=== PATIENT | male | born 1975 | race Caucasian/White ===

== ENCOUNTER 2019-12-13 09:49 | Emergency (ER) | payer OTHER, SELFPAY ==
[2019-12-13 09:50] VITALS: BP 137/96; PULSE 83; RESP 18; TEMP 36.6; O2SAT 100; BMI 23.7
--- NOTE | 2019-12-13 10:01 | RAD_ITS ---
STUDY: X-RAY - LEFT SHOULDER REASON FOR EXAM: Male, 44 years old. INCREASING LEFT SHOULDER PAIN, NKI -- PAIN IN JOINT TECHNIQUE: 4 view(s) of the shoulder. COMPARISON: None. FINDINGS: Normal glenohumeral articulation. Normal acromioclavicular joint. Normal acromion. Normal humeral head and visualized proximal humerus. The soft tissue structures are unremarkable. Normal visualized pulmonary apex. RAD/Shoulder min 2 Views IMPRESSION: Normal x-ray examination of the shoulder. Electronically Signed: Kevin Otto DO at 10:50 EST Tel , Service support ,
--- NOTE | 2019-12-13 10:08 | ED.VIS.UPPEX ---
History of Present Illness Informant: Patient, Family Occurred: - - 2 years Mechanism/Context: - - repetitive motion from work activity Onset: - - 2 years Context: Gradual Onset Timing: Continuous Quality of Pain: Aching Location: left shoulder Current Severity: Moderate Maximum Severity: Moderate Worsened by: movement Relieved by: rest Associated Symptoms: Negative for: Parasthesia, Weakness, Loss of Funtion Narrative: 44-year-old [id number]-ndalzkua male presents with left shoulder pain. 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 He also recently got health insurance. He is now here for evaluation. He denies any specific inciting injury or trauma but he does a lot of overhead work which irritates his shoulder. He has been using ibuprofen which does help some with the pain. He has not had any swelling, neck pain, numbness tingling or weakness. He has not had chest pain or shortness of breath. He has not been lightheaded or dizzy. He has no back pain. No history of injuries or surgeries to this extremity previously. Tetanus Immunization: Unknown Prior similar symptoms: Yes Recent Illness/Hospitalization: No <Roberth Ordonez - Last Filed: 12/13/19 10:54> <Omi Vela - Last Filed: 12/13/19 12:04> Chief Complaint: Upper Extremity Injury Past Medical History Prior records reviewed: Yes Past Medical History: None Surgical History: no surgical history Lives: With Family Smoking Status: Heavy Smoker (>10/day) Alcohol: Occasional Drugs: None <Roberth Ordonez - Last Filed: 12/13/19 10:54> <Omi Vela - Last Filed: 12/13/19 12:04> - Allergies and Home Meds Allergies/Adverse Reactions: Allergies No Known Allergies Allergy (Verified 12/13/19 09:52) Primary Care Physician: Jeffrey Lopez MD [NON-STAFF] - As soon as possible Justin Castillo MD [STAFF PHYSICIAN] - As soon as possible Review of Systems All systems negative except as indicated General: Denies: Chills, Fever Eyes: Denies: Visual changes - bilaterally, Blurred Vision - bilaterally ENT: Denies: Rhinorrhea, Sore throat Cardiovascular: Denies: Chest pain, Palpitations Respiratory: Denies: Dyspnea, Cough Gastrointestinal: Denies: Abdominal pain, Nausea, Vomiting, Diarrhea Genitourinary: Denies: Dysuria, Hematuria, Frequency Musculoskeletal: Reports: Extremity Pain. Denies: Neck pain, Back pain, Swelling Skin: Denies: Rash, Abscess, Abrasions, Wounds Neurological: Denies: Weakness, Parasthesia, Numbness Endocrine: Denies: Polyuria, Polydipsia Hematologic: Denies: Easy bruising, Easy bleeding <Roberth Ordonez - Last Filed: 12/13/19 10:54> Physical Exam Vital Signs/Narrative: Vital Signs Temp Pulse Resp BP Pulse Ox 12/13/19 09:50 97.9 F 83 18 137/96 H 100 Inital Vital Signs reviewed: Yes Left Shoulder: - - Normal inspection of the patient's left shoulder. He has some anterior and posterior tenderness soft tissues around the rotator cuff musculature. There is no bony tenderness of the AC joint, clavicle or scapula, arm or elbow. He has normal active range of motion but he does have pain with internal and external rotation. Strength testing is 5 out of 5. He is neurovascularly intact distally. Neck is nontender with normal range of motion actively of his neck. General: Well nourished, Well developed Head: Normocephalic, Atraumatic Eyes: Perrl, EOMI ENT: No Trauma Neck: Nontender, Full ROM. Negative for: Spinal Tenderness, Paraspinal Tenderness Cardiovascular: Regular rate Respiratory: No distress, CTA bilaterally, Chest nontender Back: Nontender Skin: Normal color, No rash, No Trauma Neurological: Alert, Oriented x3, Normal Strength, Normal Sensation, Normal Gait Psychological: Normal affect, Normal Mood <Roberth Ordonez - Last Filed: 12/13/19 10:54> Vital Signs/Narrative: Vital Signs Temp Pulse Resp BP Pulse Ox 12/13/19 09:50 97.9 F 83 18 137/96 H 100 <Oim Vela - Last Filed: 12/13/19 12:04> Diagnostic/Tx/Re-eval - Medical Decision Making Patient declined analgesia here in the emergency department he took ibuprofen just prior to arrival. X-ray of the left shoulder showed no acute bony abnormality. Patient will be placed on a Medrol pack. He was advised to rest and ice. He will be referred to orthopedics for follow-up. He was agreeable with plan and all questions were answered. He was also provided a primary care physician to establish with. <Roberth Ordonez - Last Filed: 12/13/19 10:54> - Medical Decision Making The patient presents with shoulder pain. Most of his pain seems to be in the bicipital groove. There is no gross laxity and his axillary nerve is preserved. X-rays are unremarkable. He will be given outpatient orthopedic follow-up. <Omi Vela - Last Filed: 12/13/19 12:04> ED Disposition <Roberth Ordonez - Last Filed: 12/13/19 10:54> <Omi Vela - Last Filed: 12/13/19 12:04> - Plan for ED Patient: Disposition: Home or Assisted Living Diagnosis: Left shoulder tendonitis Instructions: Tendonitis Prescriptions: MethylPREDNISolone DosePak [Medrol DosePak] 4 mg PO UD #1 box Prescription Printed Referrals: Jeffrey Lopez MD [NON-STAFF] - As soon as possible Justin Castillo MD [STAFF PHYSICIAN] - As soon as possible
== END 2019-12-13 11:04 | disposition home or self-care (01) ==
PROVIDERS: Emergency Provider Physician Assistant Medical
DX: M75.92 Shoulder lesion, unspecified, left shoulder (principal); F17.210 Nicotine dependence, cigarettes, uncomplicated
CPT/HCPCS: 73030; 99282

== ENCOUNTER 2019-12-17 03:05 | Emergency (ER) | payer OTHER, SELFPAY ==
[2019-12-17 03:06] VITALS: BP 152/84; PULSE 86; RESP 18; TEMP 36.4; O2SAT 98; BMI 22.8
--- NOTE | 2019-12-17 03:25 | EKG12_ITS ---
Test Reason : CHEST OTHER Blood Pressure : / mmHG Vent. Rate : 074 BPM Atrial Rate : 074 BPM P-R Int : 134 ms QRS Dur : 100 ms QT Int : 398 ms P-R-T Axes : 098 089 085 degrees QTc Int : 441 ms Normal sinus rhythm Normal ECG Confirmed by TORIN RAJAN ([id number]), electronic news gathering editor JORGE MARS ([id number]) on 12/17/2019 2:19:43 PM Referred By: Confirmed By:TORIN RAJAN
--- NOTE | 2019-12-17 03:28 | ED.RN ---
NO OLD EKGS IN MUSE
[2019-12-17] MEDS: Ondansetron 4 MG/2 ML Vial IV (03:32)
[2019-12-17] MEDS: Morphine 4 MG/ML Syringe IV (03:32)
[2019-12-17 03:37] LABS: Absolute Lymphocyte Count 2.11 X10^3/uL (0.83-4.51); Absolute Neutrophil Count 11.8 X10^3/uL (2.0-7.7); Basophil# 0.04 X10^3/uL; Basophil% 0.3 % (0-1); Eosinophil# 0.11 X10^3/uL; Eosinophils% 0.7 % (0-5); Hematocrit 45.1 % (40-54); Hemoglobin 15.1 g/dL (13.0-16.5); Lymphocyte # 2.11 X10^3/ul (4.0); Lymphocyte % 13.6 % (19-41); Mean Corp Hgb Conc 33.5 g/dL (32-36); Mean Corpuscular Hgb 30.4 pg (27.0-32.0); Mean Corpuscular Volume 90.9 fL (80-94); Mean Platelet Vol. 9.4 fl (6.2-12.0); Monocyte# 1.39 X10^3/uL; NRBC Flagged by Analyzer 0 % (0-5); Neutrophil # 11.75 X10^3/uL (2.7-7.7); Neutrophil % 75.9 % (47-70); Platelet Count 266 K/mm3 (150-450); RBC Distribution Width SD 39.8 fl (35.1-43.9); Red Blood Count 4.96 M/mm3 (4.6-6.2); White Blood Count 15.5 K/mm3 (4.4-11.0)
[2019-12-17 03:54] LABS: Anion Gap 6 (5-15); BUN 25 mg/dL (7-18); BUN/Creat Ratio 25.6 RATIO (10-20); Calcium,Total 8.7 mg/dL (8.5-10.1); Chloride 104 mmol/L (98-107); Creatinine, Serum 0.98 mg/dL (0.70-1.30); EST Glomerular Filtration Rate 88 mL/min (>60); Est Glom Filt Rate - Afr Amer 106 mL/min (>60); Estimated Creatinine Clearance 107.77 ml/min; Glucose 99 mg/dL (74-106); Potassium 4.2 mmol/L (3.5-5.1); Sodium Level 140 mmol/L (136-145)
--- NOTE | 2019-12-17 03:56 | ED.VISSUMM ---
- ER Visit Summary Date of Service: 12/17/19 Chief Complaint: Left shoulder pain History of Present Illness: The patient is a 44 M presenting with left shoulder pain. Patient was seen in the ED on Sunday for similar complaints. He was started on Medrol Dosepak. He was advised to follow-up with orthopedics. He was seen by orthopedics on Sunday. He had an injection in his shoulder at that time. He was advised to stop taking NSAIDs because of the steroids. He has not been taking any [id number] medications. He is scheduled to start physical therapy next week. He does a lot of lifting and lifting his arms above his head at work. He states this may have flared his symptoms. He has had intermittent left shoulder pain for the past 2 years. Denies recent injury or fall. Denies fever. Pain was radiating from his shoulder to his neck to his arm. He had nausea and vomiting associated with severe pain. Pain is worsened with any movement of his left shoulder. He denies other complaints. Physical Examination: Vitals are stable. Patient is afebrile. Alert no acute distress. HEENT exam is unremarkable. Neck is supple, nontender Lungs are clear and equal bilaterally. Heart is regular rate and rhythm. Abdomen is soft nontender nondistended. Extremities left anterior shoulder tenderness. Painful active full range of motion. No erythema or warmth. Neurovascularly intact distally. Skin is warm and dry. No focal neurologic deficit. Remainder of exam is unremarkable. Emergency Department Course and Treatment: Patient had x-ray performed on Sunday. He was given morphine, Zofran IV. EKG was obtained which shows normal sinus rhythm rate of 74 with no acute ischemic changes. CBC shows white count 15.5, he is currently taking steroids. Chemistries show BUN 25. Troponin is negative. On reevaluation patient's pain is improved and is able to range his shoulder. He is given short course of [place] for home. Advised to follow-up with orthopedics. Advised return to ED for worsening complaints. Disposition: Discharge home Impression: Left shoulder pain This note was generated with [employer] dictation software. It may contain incorrect words, spelling, and punctuation that were not noted in review of the chart prior to signing ED Disposition - Plan for ED Patient: Instructions: Tendonitis Prescriptions: Hydrocodone Bitart/Apap 5-325 [[place] 5MG-325MG] 1 tab PO Q6H PRN PRN 3 Days #10 tab PRN Reason: Pain Prescription Printed Referrals: Justin Castillo MD [STAFF PHYSICIAN] -
--- NOTE | 2019-12-17 04:12 | DCINST.ED_ITS ---
ED Disposition - Plan for ED Patient: Instructions: Tendonitis Prescriptions: Hydrocodone Bitart/Apap 5-325 [[place] 5MG-325MG] 1 tablet PO Q6H PRN PRN 3 Days #10 tablet PRN Reason: Pain Referrals: Justin Castillo MD [STAFF PHYSICIAN] -
[2019-12-17 04:21] VITALS: BP 138/86; PULSE 86; RESP 16; O2SAT 100
== END 2019-12-17 04:22 | disposition home or self-care (01) ==
LOC: ED 03:52
PROVIDERS: Emergency Provider Emergency Medicine
DX: M25.512 Pain in left shoulder (principal); R11.2 Nausea with vomiting, unspecified; Z72.0 Tobacco use
CPT/HCPCS: 80048; 84484; 85025; 93005; 96374; 96375; 99284; A4216; J2405

== ENCOUNTER → 2024-02-21 | Outpatient (CLI) | payer SELFPAY ==
--- NOTE | 2024-02-21 16:10 | RAD_ITS ---
STUDY: X-RAY - LUMBAR SPINE REASON FOR EXAM: Male, 48 years old. PAIN -- NEED CD DISC TECHNIQUE: 5 view(s) of the lumbar spine were obtained. COMPARISON: None FINDINGS: Normal lumbar lordosis. Suspect 6 lumbar type vertebral bodies. Mild dextroscoliosis centered at L3/L4. There is a normal alignment of the vertebrae. Suspect bilateral pars defects at the L6 vertebra consistent with L6 spondylolysis. No anterolisthesis of L6 on S1 due to spondylolisthesis. Normal disc space heights. Multilevel facet hypertrophy in the lower lumbar spine. The soft tissue structures are unremarkable. RAD/L/S Spine Min 4 Views IMPRESSION: 1. Suspect 6 lumbar type vertebral bodies. 2. Suspect L6 spondylolysis without spondylolisthesis of L6 on S1. 3. Mild dextroscoliosis with diffuse degenerative disc disease. MRI may be useful. Electronically Signed: Sinan Jerez MD at 12:29 EDT ,
== END | disposition home or self-care (01) ==
PROVIDERS: Referring Provider Chiropractor Orthopedic; Visit Provider Chiropractor Orthopedic
DX: M99.03 Segmental and somatic dysfunction of lumbar region (principal); M99.04 Segmental and somatic dysfunction of sacral region
CPT/HCPCS: 72110